=== PATIENT | female | born 1990 | race Native Hawaiian/Other Pacific Islander ===

== ENCOUNTER 2021-05-02 11:17 | Emergency (ER) | payer OTHER ==
[~2021-05-02] VITALS: Ht 175.3 cm; Wt 90.7 kg
[2021-05-02 11:38] LABS: BILIRUBIN,URINE NEGATIVE (NEGATIVE); CLARITY,URINE CLEAR; COLOR,URINE YELLOW; GLUCOSE, URINE (UA) NEGATIVE (NEGATIVE); KETONES,URINE NEGATIVE (NEGATIVE); LEUKOCYTE ESTERASE ,URINE NEGATIVE (NEGATIVE); NITRITE,URINE NEGATIVE (NEGATIVE); PROTEIN,URINE TRACE (NEGATIVE)
[2021-05-02 11:50] LABS: BACTERIA,URINE NEGATIVE /HPF; RBC,URINE 25-50 /HPF; WBC,URINE 0-2 /HPF
--- NOTE | 2021-05-02 12:08 | ED Abdominal Pain ---
General Chief Complaint: Abdominal/GI Problems Stated Complaint: LLQ PAIN Nursing Triage Note: PT AMB TO FT 1 W REPORTS OF SHARP LLQ PAIN AND NAUSEA AT APPROX 0900 THAT HAS SINCE SUBSIDED. PT DENIES PAIN, REPORTS DISCOMFORT AT INTENSITY OF 1, DENIES NAUSEA AT THIS TIME. PT A&OX4. (RADHA PEACOCK) History of Present Illness Date Seen by Provider: May 02, 2021 Time Seen by Provider: 11:28 Initial Comments 30-year-old female presents for left lower quadrant and left flank pain from earlier today. She reports that at 9:00 the pain was so intense she felt nauseous. It is since improved and she denies any pain at this time she has not taken any medication for her symptoms. She reports a kidney stone in the past on the right. She denies any chronic GI or health issues. She is at the end of her menstrual cycle. Timing/Duration: 4-6 Hours Severity/Quality: Mild Location: LLQ Radiation: Flank (left) Associated Symptoms: Denies Symptoms (at time of presentation to ED) (RADHA PEACOCK) Allergies and Home Medications Allergies Coded Allergies: No Known Drug Allergies (Unverified , 05/02/21) Patient Home Medication List Home Medication List Reviewed: Yes (RADHA PEACOCK) Hydrocodone/Acetaminophen (Hydrocodone-Acetamin 5-325 mg) 1 Each Tablet, 0.5-1 TAB PO Q6H PRN for PAIN-MODERATE (5-7) Prescribed by: RADHA PEACOCK on 05/02/21 1323 Ondansetron (Ondansetron Odt) 4 Mg Tab.rapdis, 4 MG PO Q6H PRN for NAUSEA/VOMITING Prescribed by: RADHA PEACOCK on 05/02/21 1322 Tamsulosin HCl (Flomax) 0.4 Mg Cap, 0.4 MG PO DAILY Prescribed by: RADHA PEACOCK on 05/02/21 1322 Review of Systems Review of Systems Constitutional: no symptoms reported, see HPI Gastrointestinal: See HPI, Abdominal Pain (LLQ) Genitourinary: See HPI, Flank Pain (left), Hematuria (related to menstrual cycle) (RADHA PEACOCK) All Other Systems Reviewed Negative Unless Noted: Yes (RADHA PEACOCK) Past Nryrsqm-Jguczy-Hzchyq Hx Patient Social History Tobacco Use?: No Use of E-Cig and/or Vaping dev: No Substance use?: No Alcohol Use?: Yes Alcohol Frequency: Once in a while (RADHA PEACOCK LELA) Immunizations Up To Date Influenza Vaccine Up-to-Date: Yes; Up-to-Date First/Initial COVID19 Vaccinat: 2020 Second COVID19 Vaccination Ifeanyi: 2020 COVID19 Vaccine Floral [employer]: [employer] (RADHA PEACOCK LELA) Past Medical History Last Menstrual Period: Apr 26, 2021 (MADONNARADHA VOGEL) Family Medical History Reviewed Nursing Family Hx (MADONNARADHA VOGEL) Physical Exam Vital Signs Vital Signs - First Documented 05/02/21 11:28 Temp 36.7 Pulse 84 Resp 20 B/P (MAP) 135/88 (104) Pulse Ox 97 O2 Delivery Room Air (DANIEL GARCIA MD) Vital Signs Capillary Refill : Less Than 3 Seconds (MADONNARADHA VOGEL) Height/Weight/BMI Height: '" Weight: lbs. oz. kg; 29.00 BMI Method: General Appearance: WD/WN, no apparent distress Neck: non-tender, full range of motion, supple, normal inspection Respiratory: chest non-tender, lungs clear, normal breath sounds Cardiovascular: normal peripheral pulses, regular rate, rhythm Gastrointestinal: normal bowel sounds, non tender, soft; No distended, No guarding, No rebound, No tenderness, No hernia, No mass Extremities: normal range of motion, non-tender, normal inspection, normal capillary refill Back: normal inspection, no vertebral tenderness, CVA tenderness (L) Neurologic/Psychiatric: no motor/sensory deficits, alert, normal mood/affect, oriented x 3 Skin: normal color, warm/dry (RADHA PEACOCK) Progress/Results/Core Measures Results/Orders Lab Results Laboratory Tests Test 05/02/21 11:29 Range/Units Urine Color YELLOW Urine Clarity CLEAR Urine pH 6.0 5-9 Urine Specific [place] 1.025 H 1.016-1.022 Urine Protein TRACE H NEGATIVE Urine Glucose (UA) NEGATIVE NEGATIVE Urine Ketones NEGATIVE NEGATIVE Urine Nitrite NEGATIVE NEGATIVE Urine Bilirubin NEGATIVE NEGATIVE Urine Urobilinogen 0.2 < = 1.0 MG/DL Urine Leukocyte Esterase NEGATIVE NEGATIVE Urine RBC (Auto) 3+ H NEGATIVE Urine RBC 25-50 H /HPF Urine WBC 0-2 /HPF Urine Squamous Epithelial Cells 2-5 /HPF Urine Crystals NONE /LPF Urine Bacteria NEGATIVE /HPF Urine Casts NONE /LPF Urine Mucus SMALL H /LPF Urine Culture Indicated NO (DANIEL GARCIA MD) Vital Signs/I&O 05/02/21 05/02/21 11:28 13:30 Temp 36.7 Pulse 84 74 Resp 20 20 B/P (MAP) 135/88 (104) 122/82 Pulse Ox 97 98 O2 Delivery Room Air Room Air (DANIEL GARCIA MD) Blood Pressure Mean: 104 Progress Progress Note : Time: 11:28 Progress Note Patient seen and evaluated, discussed options and care at this time since her symptoms have improved. She is from out of town and will be here for 1 more day. She wished to proceed with a CT. She declined the need for pain or nausea medicine [address], no complaints. UA essential normal 1305 CT reviewed with patient, she continues to deny pain or nausea. She is urinating, without discomfort. Offered IV fluids and toradol, patient declined. Discharge instructions and return precautions reviewed with the patient. Urine strainer provided. She will follow-up with her primary care provider if symptoms are not improving, when she returns home. (RADHA PEACOCK) Diagnostic Imaging Diagonstic Imaging: CT Plain Films/CT/US/NM/MRI: abdomen, pelvis Comments NAME: RONNIE TEJEDA [facility] REC#: [id number] PT STATUS: REG ER : 1990 PHYSICIAN: RADHA PEACOCK ADMIT DATE: 05/02/21/ER Draft Date of Exam:05/02/21 CT ABD/PELVIS WO(KIDNEY STONE) PROCEDURE: CT urinary tract, rule out kidney stone. TECHNIQUE: Multiple contiguous axial images were obtained through the abdomen and pelvis without the use of intravenous contrast. Auto Exposure Controls were utilized during the CT exam to meet ALARA standards for radiation dose reduction. INDICATION: Left abdominal pain, history of stones COMPARISON: None FINDINGS: The lung bases are clear. The heart is normal in size. There is no pericardial effusion. The liver demonstrates no focal lesions. The spleen appears normal with a single calcified granuloma noted. The pancreas appears normal. The adrenal glands are normal. The right kidney is unremarkable with no hydronephrosis and no calculi. The left kidney demonstrates mild hydroureteronephrosis and there is an obstructing 3 mm calculus in the proximal left ureter at the L3 level. The bowel loops are nondistended without obstruction. The pancreas is normal. There is no free fluid or free air. No acute osseous abnormalities seen. IMPRESSION: 1. Obstructing 3 mm calculus in the proximal left ureter causing mild hydroureteronephrosis. Dictated on workstation # [id number] Dict: 05/02/21 1249 Trans: 05/02/21 1259 [facility] [id number] Reviewed: Reviewed by Me (RADHA PEACOCK) Departure Impression Primary Impression: Abdominal pain Qualified Codes: R10.32 - Left lower quadrant pain Additional Impression: Left nephrolithiasis Disposition: HOME, SELF-CARE Condition: Improved Departure-Patient Inst. Decision time for Depature: 13:05 (RADHA PEACOCK) Referrals: NO,LOCAL PHYSICIAN (PCP/Family) Primary Care Physician Patient Instructions: Kidney Stones (DC) Add. Discharge Instructions: Increase water intake, 16 ounces every 2 hours while awake. Use 1/2 to 1 tablet of the hydrocodone for severe pain. Use the Zofran every 6-8 hours as needed for nausea or vomiting. Take the Flomax daily for 2 weeks. You can take ibuprofen 600 mg every 8 hours for pain. Strain your urine. Follow-up with your primary care provider if symptoms are not improving or worsen. Return to the emergency department for new, urgent healthcare problems. All discharge instructions reviewed with patient and/or family. Voiced understanding. Scripts Hydrocodone/Acetaminophen (Hydrocodone-Acetamin 5-325 mg) 1 Each Tablet 0.5-1 TAB PO Q6H PRN for PAIN-MODERATE (5-7), #15 TAB 0 Refills Prov: RADHA PEACOCK 05/02/21 Tamsulosin HCl (Flomax) 0.4 Mg Cap 0.4 MG PO DAILY, #14 CAP 0 Refills Prov: RADHA PEACOCK 05/02/21 Ondansetron (Ondansetron Odt) 4 Mg Tab.rapdis 4 MG PO Q6H PRN for NAUSEA/VOMITING, #12 TAB 0 Refills Prov: RADHA PEACOCK 05/02/21 ATTENDING PHYSICIAN NOTE: I was physically present as attending physician in the emergency department during the care of this patient, but I was not directly involved in the decision making or delivery of care for this patient. (DANIEL GARCIA MD) RADHA PEACOCK May 02, 2021 12:08 DANIEL GARCIA MD May 02, 2021 15:49
--- NOTE | 2021-05-02 13:00 | Diagnostic Imaging Report ---
PROCEDURE: CT urinary tract, rule out kidney stone. TECHNIQUE: Multiple contiguous axial images were obtained through the abdomen and pelvis without the use of intravenous contrast. Auto Exposure Controls were utilized during the CT exam to meet ALARA standards for radiation dose reduction. INDICATION: Left abdominal pain, history of stones COMPARISON: None FINDINGS: The lung bases are clear. The heart is normal in size. There is no pericardial effusion. The liver demonstrates no focal lesions. The spleen appears normal with a single calcified granuloma noted. The pancreas appears normal. The adrenal glands are normal. The right kidney is unremarkable with no hydronephrosis and no calculi. The left kidney demonstrates mild hydroureteronephrosis and there is an obstructing 3 mm calculus in the proximal left ureter at the L3 level. The bowel loops are nondistended without obstruction. The pancreas is normal. There is no free fluid or free air. No acute osseous abnormalities seen. IMPRESSION: 1. Obstructing 3 mm calculus in the proximal left ureter causing mild hydroureteronephrosis. Dictated by: Dictated on workstation # [id number]
[2021-05-02] MEDS ORDERED: TMSL.4C PO (13:22)
[2021-05-02] MEDS ORDERED: ONDA4TAB11 PO (13:22)
[2021-05-02] MEDS ORDERED: ACHD5005 PO (13:22)
[2021-05-02 13:30] VITALS: BP 122/82
== END 2021-05-02 13:30 | disposition home or self-care (01) ==
LOC: ER 11:26
DX: N13.2 Hydronephrosis with renal and ureteral calculous obstruction (principal)
CPT/HCPCS: 74176; 81000; 84703